=== PATIENT | female | born 1975 | race Two or more races ===

== ENCOUNTER 2017-12-24 06:52 | Inpatient (IN) | payer OTHER ==
[~2017-12-24] VITALS: Ht 152.4 cm; Wt 61.2 kg
--- NOTE | 2017-12-24 06:52 | NUR ---
"DIZZINESS/N/V SINCE 399" VSS NO ACUTE DISTRESS AT THIS TIME. PATIENT IS VERY WEAK BUT ALERT AND ORIENTED X3 ABLE TO MAKE NEEDS KNOWN. SKIN IS INTACT BUT PALE IN COLOR. PT PLACED ON MUNICIPAL COURT JUDGE. WILL CONTINUE TO MONITOR FOR ANY CHANGES DURING THE SHIFT.
--- NOTE | 2017-12-24 06:53 | NUR ---
ER MD CARLSON AT BEDSIDE FOR EVAL
[2017-12-24] MEDS ORDERED: ONDANSETRON HCL/PF 4 MG/2 ML VIAL IVP ONE (07:00)
[2017-12-24] MEDS ORDERED: IV NS 0.9% 1,000 ML BAG IV ONE (07:00)
[2017-12-24] MEDS ORDERED: ONDANSETRON HCL/PF 4 MG/2 ML VIAL ONE (07:01)
--- NOTE | 2017-12-24 07:13 | NUR ---
BLOOD SENT TO THE LAB WITH COTTON WEIGHER OPERATOR
[2017-12-24 07:17] LABS: BASOPHILS % (AUTO) 0.1 % (0.0-2.0); HEMATOCRIT 38 % (33-45); HEMOGLOBIN 12.7 g/dL (11.5-14.8); LYMPHOCYTES # (AUTO) 1.1 /CMM (0.8-4.8); MEAN CORPUSCULAR HEMOGLOBIN 32 PG (26.0-33.0); MEAN CORPUSCULAR HGB CONC 33 g/dl (31.0-36.0); MEAN CORPUSCULAR VOLUME 95 fL (82-100); MONOCYTES # (AUTO) 0.2 /CMM (0.1-1.30); MONOCYTES % (AUTO) 5.3 % (2.0-12.0); NEUTROPHILS # (AUTO) 2.9 /CMM (1.8-8.9); NEUTROPHILS % (AUTO) 67.6 % (43.0-81.0); PLATELET COUNT (AUTO) 212 /CMM (150-450); RDW COEFFICIENT OF VARIATION 12.6 (11.5-15.0); RED BLOOD CELL COUNT(AUTO) 4.02 MIL/uL (4.0-5.2); WHITE BLOOD COUNT (AUTO) 4.3 K/uL (4.3-11.0)
[2017-12-24 07:24] LABS: CALCIUM, SERUM 8.6 mg/dL (8.5-10.1); CREATININE 0.8 mg/dL (0.6-1.3); POTASSIUM 3.4 mmol/L (3.5-5.1)
[2017-12-24] MEDS ORDERED: MECLIZINE HCL 25 MG TABLET ONE (07:45)
[2017-12-24] MEDS ORDERED: POTASSIUM CHLORIDE 20 MEQ TAB.PRT.SR PO ONE ×2 (07:45→08:00)
[2017-12-24] MEDS ORDERED: IV NS 0.9% 1,000 ML IV ONE (08:00)
[2017-12-24] MEDS ORDERED: Magnesium 1 GM/2 ML VIAL IV ONE (08:00)
[2017-12-24] MEDS ORDERED: MECLIZINE HCL 12.5 MG TABLET PO ONE (08:00)
[2017-12-24] MEDS ORDERED: Magnesium 1GM/D5W 100ML PREMIX 200 ML IV ONE (08:10)
--- NOTE | 2017-12-24 12:40 | NUR ---
dr rivers made aware of blood pressure. no new orders at this time.
--- NOTE | 2017-12-24 13:34 | NUR ---
report given to ana laura. pt awaiting transfer to floor.
--- NOTE | 2017-12-24 13:46 | NUR ---
TEXTED DR. CEJA FOR MRI APPROVAL.
--- NOTE | 2017-12-24 13:46 | NUR ---
ON HOLD FOR NOW, DR. CEJA WILL LET US KNOW.
[2017-12-24 13:55] VITALS: BP 93/54
--- NOTE | 2017-12-24 13:55 | NUR ---
DIE STORAGE CLERK OPENING NOTES RECEIVED PATIENT IN STABLE CONDITION. IN NO APPARENT DISTRESS. BEDSIDE RAILS ARE UPX2. BED IS LOCKED AND LOWERED. CALL LIGHT IS WITHIN REACH. IV LINE IS INTACT AND PATENT. WILL CONTINUE TO MONITOR PATIENT.
[2017-12-24 16:00] VITALS: BP_SYST 96; BP_SYST 97; BP_SYST 99; BP_DIAS 49; BP_DIAS 56; BP_DIAS 59
[2017-12-24] MEDS ORDERED: ZOLPIDEM TARTRATE 5 MG TABLET PO PRN (16:00)
[2017-12-24] MEDS ORDERED: MAGNESIUM HYDROXIDE 30 ML UDC PO PRN (16:00)
[2017-12-24] MEDS ORDERED: ACETAMINOPHEN 325 MG TABLET PO PRN (16:00)
[2017-12-24] MEDS ORDERED: ONDANSETRON HCL/PF 4 MG/2 ML VIAL IVP PRN (16:00)
[2017-12-24] MEDS ORDERED: Z GUARD REMEDY 2 OZ OINT TP PRN (16:00)
[2017-12-24] MEDS ORDERED: HYDROCODONE/APAP 5/325MG 1 EACH TABLET PO PRN (16:00)
[2017-12-24] MEDS: IV NS 0.9% 1,000 ML IV PRN (16:17)
--- NOTE | 2017-12-24 18:19 | NUR ---
COURTROOM REPORTER CLOSING NOTES PATIENT IS IN STABLE CONDITION. IN NO APPARENT DISTRESS. BEDSIDE RAILS ARE UPX2. BED IS LOCKED AND LOWERED. CALL LIGHT IS WITHIN REACH. IV LINE IS INTACT AND PATENT. WILL ENDORSE CARE TO MATTRESS STUFFER NURSE FOR ARISTEO.
--- NOTE | 2017-12-24 19:20 | NUR ---
FRONT END DEVELOPER JAVASCRIPT HTML CSS OPENING NOTES RECEIVED PATIENT RESTING IN BED WITH FAMILY @ BED SIDE. A & O X 4, NO SOB, NO C/O PAIN, NO ACUTE CHANGES NOTED. PT HAS C/O MILD DIZZINESS @ TIMES BUT VERBALIZED THAT SHE FEELS BETTER THAN BEFORE. ON TELE MONITORING WITH SR WITH 1ST DEGREE AVB, HR 67. IV ACCESS TO RAC, INTACT PATENT, RUNNING WITH IVF ORDERED. ON CLEAR LIQUID DIET BUT PATIENT STATED SHE HAD YOGURT ALREADY & NO N/V FELT & FEELS BETTER AFTER EATING YOGURT. PT WANTS TO EAT REGULAR DIET, WILL CLARIFY WITH MD. INSTRUCTED PT TO CALL FOR HELP TO USE BSC TO PREVENT DIZZINESS, BUT SHE REFUSED & WANTS TO GO TO THE BATHROOM ONLY, DESPITE OF EXPLAINING RISKS OF FALL. WILL ASSIST TO BRP. BED IN LOW LOCKED POSITION. SAFETY MEASURES IN PLACE. CALL LIGHT WITHIN REACH. WILL CONTINUE TO MONITOR CLOSELY.
[2017-12-24 20:00] VITALS: BP 91/46
[2017-12-24 20:15] VITALS: BP 97/55
--- NOTE | 2017-12-24 21:02 | NUR ---
DIET CHANGE ORDER PT KEPT INSISTING ON HAVING REGULAR DIET SA SOON POSSIBLE. EXPLAINED TO THE PT THAT MD ORDERED CLEAR LIQUID DIET DUE TO PT BEING DIZZY WITH NAUSEA, BUT PT STATED THAT SHE IS FEELING BETTER NOW & ONLY WANTS TO EAT REGULAR DIET. SHE HAD YOGURT WITHOUT INFORMING THE NURSE EARLIER. INFORMED MD THAT PT IS DUE FOR HER MRI BRAIN WITH CONTRAST, PER MD THERE SHOULD NOT BE ANY CONTRAINDICATIONS HAVING REGULAR DIET BUT IF PT IF REGULAR DIET TRIGGERS N/V AGAIN THEN KEEP HER ON CLEAR LIQUID DIET. EXPLAINED TO THE PT RISKS OF REGULAR DIET, VERBALIZED UNDERSTANDING BUT STILL INSISTED TO EAT REGULAR DIET. EVEN PT STARTED EATING BEANS WITH CHICKEN WHEN NURSE WENT TO THE ROOM AFTER TALKING TO MD WITH NEW DIET ORDER. WILL MONITOR CLOSELY.
[2017-12-25] VITALS: BP 98/50
[2017-12-25 04:00] VITALS: BP 91/53
[2017-12-25 04:30] VITALS: BP_SYST 101; BP_SYST 90; BP_SYST 92; BP_DIAS 54; BP_DIAS 58; BP_DIAS 60
[2017-12-25] MEDS: IV NS 0.9% 1,000 ML IV PRN (05:12)
[2017-12-25 05:34] LABS: BASOPHILS % (AUTO) 0.5 % (0.0-2.0); HEMATOCRIT 38 % (33-45); HEMOGLOBIN 12.5 g/dL (11.5-14.8); LYMPHOCYTES # (AUTO) 1.3 /CMM (0.8-4.8); LYMPHOCYTES % (AUTO) 23.4 % (20.0-44.0); MEAN CORPUSCULAR HEMOGLOBIN 31 PG (26.0-33.0); MEAN CORPUSCULAR HGB CONC 33 g/dl (31.0-36.0); MEAN CORPUSCULAR VOLUME 95 fL (82-100); MONOCYTES # (AUTO) 0.4 /CMM (0.1-1.30); MONOCYTES % (AUTO) 7.9 % (2.0-12.0); NEUTROPHILS # (AUTO) 3.7 /CMM (1.8-8.9); NEUTROPHILS % (AUTO) 66.2 % (43.0-81.0); PLATELET COUNT (AUTO) 214 /CMM (150-450); RED BLOOD CELL COUNT(AUTO) 3.97 MIL/uL (4.0-5.2); WHITE BLOOD COUNT (AUTO) 5.6 K/uL (4.3-11.0)
[2017-12-25 06:04] LABS: CALCIUM, SERUM 7.9 mg/dL (8.5-10.1); CREATININE 0.8 mg/dL (0.6-1.3); MAGNESIUM 1.9 mg/dL (1.8-2.4); PHOSPHORUS 3.8 mg/dL (2.5-4.9)
--- NOTE | 2017-12-25 06:30 | NUR ---
SILVICULTURE FORESTER CLOSING NOTES PT SLEPT WELL @ NIGHT. A & O X 4, NO SOB, NO C/O PAIN, NO ACUTE CHANGES NOTED. PT HAS C/O MILD DIZZINESS @ TIMES BUT VERBALIZED THAT SHE FEELS BETTER THAN BEFORE. ON TELE MONITORING WITH SR WITH 1ST DEGREE AVB, HR 66. IV ACCESS TO RAC, INTACT PATENT, RUNNING WITH IVF ORDERED. ON REGULAR DIET, TOLERATED WELL @ NIGHT. INSTRUCTED PT TO CALL FOR HELP TO USE BR TO PREVENT DIZZINESS, VERBALIZED UNDERSTANDING. BED IN LOW LOCKED POSITION. SAFETY MEASURES IN PLACE. CALL LIGHT WITHIN REACH. WILL ENDORSE TO AM RN.
--- NOTE | 2017-12-25 07:31 | NUR ---
TELE/RN OPENING NOTE PATIENT IS RECEIVED IN BED AND AWAKE. ALERT AND ORIENTED X4. PATIENT IS IN ROOM AIR AND DENIES SOB. RESPIRATION REGULAR AND UNLABORED. DENIES PAIN AT THIS TIME. DENIES DIZZINESS. NO NAUSEA AND VOMITING AT THIS TIME. TELE BOX ON AND SHOWING SR WITH 1ST DEGREE AV BLOCK. PATIENT IN NO APPARENT DISTRESS. RAC G 20 PATENT AND IV FLUID INFUSING WITH NO S/S INFILTRATION. BED LOW AND LOCKED. SIDE RAILS UP X2. CALL LIGHT WITHIN REACH. WILL CONTINUE TO MONITOR.
[2017-12-25 08:00] VITALS: BP 90/54
[2017-12-25 13:32] LABS: ALBUMIN 3.1 g/dL (3.4-5.0); BILIRUBIN,DIRECT 0.1 mg/dL (0.0-0.2); BILIRUBIN,TOTAL 0.3 mg/dL (0.2-1.0); TOTAL PROTEIN, SERUM 6.9 g/dL (6.4-8.2)
[2017-12-25] MEDS ORDERED: GADODIAMIDE 2.5 MMOL/5 ML VIAL IJ ONE (14:10)
[2017-12-25] MEDS ORDERED: ASPI-605 PO (14:25)
--- NOTE | 2017-12-25 15:39 | NUR ---
TELE/RN CLOSING NOTE PATIENT ALERT AND ORIENTED X4. DENIES PAIN. PATIENT IS IN ROOM AND DENIES SOB. RESPIRATION REGULAR AND UNLABORED. NO WEAKNESS NOTED. PATIENT IN STABLE CONDITION AND IN NO APPARENT DISTRESS. DISCHARGE EDUCATIONS PROVIDED AND THE PATIENT VERBALIZED UNDERSTANDING. PATIENT IS PICKED UP BY . LEAVING THE HOSPITAL IN STABLE CONDITION.
== END 2017-12-25 15:44 | disposition home or self-care (01) | DRG 111 ==
LOC: ER 06:54 → TELE 13:33
PROVIDERS: ADMIT Nurse Practitioner Acute Care; ATTEND Nurse Practitioner Acute Care
DX: H81.10 Benign paroxysmal vertigo, unspecified ear (principal); N17.0 Acute kidney failure with tubular necrosis; E86.0 Dehydration; E87.6 Hypokalemia; Z86.73 Personal history of transient ischemic attack (TIA), and cerebral infarction without residual deficits; R26.89 Other abnormalities of gait and mobility; Z95.1 Presence of aortocoronary bypass graft; Z88.0 Allergy status to penicillin; Z87.74 Personal history of (corrected) congenital malformations of heart and circulatory system
CPT/HCPCS: 36415; 70450-TC; 70553-TC; 80048-TC; 80061-TC; 80076-TC; 80305; 83735-TC; 84100-TC; 85025-TC; 87081-TC; 93307-TC; 93880-TC; A4606; J2405; J3475; J7030; J8597; Z7610